=== PATIENT | female | born 1985 | race Caucasian/White ===

== ENCOUNTER 2019-02-21 07:16 | Inpatient (IN) | payer OTHER ==
[~2019-02-21] VITALS: Ht 152.4 cm; Wt 77.2 kg
[~2019-02-21 07:16] MED LIST: FERR325T16 PO; IBUP-1223 PO; OXYC-302 PO; SENN-52 PO
[2019-02-21] MEDS ORDERED: PREN1TAB10 PO (07:29)
[2019-02-21] MEDS ORDERED: LACTATED RINGERS 1,000 ML IVBOLUS ONE (07:30)
[2019-02-21] MEDS ORDERED: METOCLOPRAMIDE 5 MG/ML, 2ML IV ONE (07:30)
[2019-02-21] MEDS ORDERED: SODIUM CITRATE/CITRIC ACID 30 ML UDC PO ONE (07:30)
[2019-02-21] MEDS ORDERED: SODIUM CITRATE/CITRIC ACID 30 ML UDC ONE (07:44)
[2019-02-21] MEDS ORDERED: METOCLOPRAMIDE 5 MG/ML, 2ML ONE (07:44)
[2019-02-21] MEDS ORDERED: OXYTOCIN 30U/ 0.9% NaCL 500ML 500 ML ONE (07:44)
[2019-02-21] MEDS ORDERED: NEWBORN KIT ONE (07:44)
[2019-02-21] MEDS ORDERED: METHYLERGONOVINE 0.2 MG/ML IM ONE (08:00)
[2019-02-21 08:05] VITALS: BP 115/76
[2019-02-21 08:06] LABS: BASOPHILS # (AUTO) 0.02 x10^3/uL (0-0.1); BASOPHILS % (AUTO) 0 % (0-1); EOSINOPHILS # (AUTO) 0.15 x10^3/uL (0-0.4); EOSINOPHILS % (AUTO) 2 % (1-7); LYMPHOCYTES # (AUTO) 1.98 x10^3/uL (1-3.4); LYMPHOCYTES % (AUTO) 22 % (22-44); MD NO; MEAN CORPUSCULAR HEMOGLOBIN 27.8 pg (27.0-34.8); MEAN CORPUSCULAR HGB CONC 31.8 g/dL (32.4-35.8); MEAN CORPUSCULAR VOLUME 87.4 fL (80-100); MEAN PLATELET VOLUME 9.1 fL (7.4-10.4); MONOCYTES % (AUTO) 3 % (2-9); NEUTROPHILS # (AUTO) 6.72 x10^3/uL (1.8-6.8); NEUTROPHILS % (AUTO) 73 % (42-75); PLATELET COUNT 199 x10^3/uL (130-400); RED BLOOD COUNT 4.52 x10^6/uL (3.82-5.3); RED CELL DISTRIBUTION WIDTH 18.4 % (9.6-15.2)
[2019-02-21] MEDS ORDERED: FENTANYL PF 100 MCG/2ML ONE (08:17)
[2019-02-21] MEDS: LACTATED RINGERS 1,000 ML IV SCH ×4 (08:45→18:05)
[2019-02-21] MEDS ORDERED: CEFAZOLIN 1,000 MG ONE (09:13)
[2019-02-21] MEDS ORDERED: OXYTOCIN 10 UNITS/ML, 1ML ONE (09:13)
[2019-02-21] MEDS ORDERED: EPHEDRINE 50 MG/ML, 1ML ONE (09:13)
[2019-02-21] MEDS ORDERED: GLYCOPYRROLATE 0.2MG/1ML, 5ML ONE (09:57)
[2019-02-21] MEDS ORDERED: LACTATED RINGERS 1,000 ML IV SCH (10:05)
[2019-02-21] MEDS ORDERED: ONDANSETRON 2MG/ML, 2ML IV PRN ×2 (10:30)
[2019-02-21] MEDS ORDERED: IBUPROFEN 600 MG TABLET PO PRN (10:30)
[2019-02-21] MEDS ORDERED: OXYcodone 5 MG/5 ML ORAL.SOL UDC PO PRN (10:30)
[2019-02-21] MEDS ORDERED: EPHEDRINE 50 MG/ML, 1ML IVPush PRN (10:30)
[2019-02-21] MEDS ORDERED: MORPHINE SULFATE 4 MG/ML, 1ML IVPush PRN ×2 (10:30)
[2019-02-21] MEDS ORDERED: CARBOPROST TROMETHAMINE 250 MCG/ML, 1ML IM PRN (10:30)
[2019-02-21] MEDS ORDERED: DIPHENHYDRAMINE 50 MG/ML, 1ML IVPush PRN (10:30)
[2019-02-21] MEDS ORDERED: DEXAMETHASONE 4 MG/ML, 1ML IV PRN (10:30)
[2019-02-21] MEDS ORDERED: ACETAMINOPHEN 325 MG TABLET PO PRN ×2 (10:30)
[2019-02-21] MEDS ORDERED: FENTANYL PF 100 MCG/2ML IV PRN (10:30)
[2019-02-21] MEDS ORDERED: PROMETHAZINE 25 MG/ML, 1ML IV PRN (10:30)
[2019-02-21] MEDS ORDERED: MISOPROSTOL 200 MCG TABLET PR PRN (10:30)
[2019-02-21] MEDS ORDERED: MEPERIDINE/PF 50 MG/ML IM PRN (10:30)
[2019-02-21] MEDS ORDERED: METOCLOPRAMIDE 5 MG/ML, 2ML IV PRN (10:30)
[2019-02-21] MEDS ORDERED: METHYLERGONOVINE 0.2 MG/ML IM PRN (10:30)
[2019-02-21] MEDS: OXYTOCIN 30U/ 0.9% NaCL 500ML 500 ML IV SCH ×2 (10:45→20:05)
[2019-02-21] MEDS ORDERED: KETOROLAC 30 MG/1 ML ONE (11:06)
[2019-02-21] MEDS: KETOROLAC 30 MG/1 ML IV SCH ×3 (11:07→22:18)
[2019-02-21 11:45] VITALS: BP 123/82
[2019-02-21] MEDS: OXYcodone/APAP 5/325MG TABLET PO PRN ×3 (15:50→22:24)
[2019-02-21 15:53] VITALS: BP 105/67
[2019-02-21 17:30] LABS: BASOPHILS # (AUTO) 0.04 x10^3/uL (0-0.1); BASOPHILS % (AUTO) 0 % (0-1); EOSINOPHILS # (AUTO) 0.17 x10^3/uL (0-0.4); EOSINOPHILS % (AUTO) 2 % (1-7); LYMPHOCYTES # (AUTO) 1.33 x10^3/uL (1-3.4); LYMPHOCYTES % (AUTO) 12 % (22-44); MD NO; MEAN CORPUSCULAR HEMOGLOBIN 28.5 pg (27.0-34.8); MEAN CORPUSCULAR HGB CONC 32.4 g/dL (32.4-35.8); MEAN CORPUSCULAR VOLUME 87.9 fL (80-100); MEAN PLATELET VOLUME 9.1 fL (7.4-10.4); MONOCYTES # (AUTO) 0.41 x10^3/uL (0.2-0.8); MONOCYTES % (AUTO) 4 % (2-9); NEUTROPHILS # (AUTO) 9.56 x10^3/uL (1.8-6.8); NEUTROPHILS % (AUTO) 83 % (42-75); PLATELET COUNT 178 x10^3/uL (130-400); RED CELL DISTRIBUTION WIDTH 17.7 % (9.6-15.2)
[2019-02-21 20:00] VITALS: BP 91/60
[2019-02-21] MEDS: DOCUSATE 100 MG CAPSULE PO PRN (22:18)
[2019-02-21 23:47] VITALS: BP 91/53
[2019-02-22] MEDS: OXYcodone/APAP 5/325MG TABLET PO PRN ×5 (02:11→22:34)
[2019-02-22 04:15] VITALS: BP 94/62
[2019-02-22] MEDS: KETOROLAC 30 MG/1 ML IV SCH ×4 (04:18→22:31)
[2019-02-22] MEDS: OXYTOCIN 30U/ 0.9% NaCL 500ML 500 ML IV SCH ×2 (06:05→16:05)
[2019-02-22 07:50] VITALS: BP 95/64
[2019-02-22] MEDS: DOCUSATE 100 MG CAPSULE PO PRN ×2 (07:58→22:31)
[2019-02-22] MEDS: PRENATAL VIT/IRON/FA 1 EACH TABLET PO SCH (07:58)
[2019-02-22] MEDS: SIMETHICONE 80 MG CHEW TAB PO PRN ×2 (07:59→18:56)
[2019-02-22 20:20] VITALS: BP 104/71
[2019-02-23] MEDS: OXYTOCIN 30U/ 0.9% NaCL 500ML 500 ML IV SCH (02:05)
[2019-02-23] MEDS: OXYcodone/APAP 5/325MG TABLET PO PRN ×3 (04:30→12:25)
[2019-02-23] MEDS: KETOROLAC 30 MG/1 ML IV SCH (04:30)
[2019-02-23] MEDS: SIMETHICONE 80 MG CHEW TAB PO PRN ×2 (04:30→11:18)
[2019-02-23 07:45] VITALS: BP 108/73
[2019-02-23] MEDS: PRENATAL VIT/IRON/FA 1 EACH TABLET PO SCH (08:11)
[2019-02-23] MEDS: DOCUSATE 100 MG CAPSULE PO PRN (08:11)
[2019-02-23] MEDS ORDERED: IBUP-1222 PO (10:12)
[2019-02-23] MEDS ORDERED: DOCU-131 PO (10:12)
[2019-02-23] MEDS ORDERED: OXYC-302 PO (10:14)
== END 2019-02-23 12:41 | disposition home or self-care (01) | DRG 788 ==
LOC: LDIP 07:16 → 2NW 11:29
PROVIDERS: ADMIT Obstetrics & Gynecology; ATTEND Obstetrics & Gynecology
PROC: 10D00Z1 Extraction of Products of Conception, Low, Open Approach (ICD-10-PCS; principal; 2019-02-21)
DX: O34.211 Maternal care for low transverse scar from previous cesarean delivery (principal); O69.81X0 Labor and delivery complicated by cord around neck, without compression, not applicable or unspecified; O99.824 Streptococcus B carrier state complicating childbirth; Z37.0 Single live birth; Z3A.39 39 weeks gestation of pregnancy; O99.284 Endocrine, nutritional and metabolic diseases complicating childbirth; E28.2 Polycystic ovarian syndrome
CPT/HCPCS: 36415; 85025; 86850; 86900; 87806; G0378; J0690; J1885; J3010; G0475; J2210; J2590; J2765; J7120

== ENCOUNTER 2020-02-29 12:08 | Emergency (ER) | payer OTHER ==
[~2020-02-29] VITALS: Ht 152.4 cm; Wt 66.0 kg
[~2020-02-29 12:08] MED LIST changes: +DOCU-131 PO; +IBUP-1222 PO; +PREN1TAB10 PO
[2020-02-29 12:39] LABS: BASOPHILS % (AUTO) 1 % (0-1); EOSINOPHILS % (AUTO) 0 % (1-7); LYMPHOCYTES % (AUTO) 20 % (22-44); MEAN CORPUSCULAR HEMOGLOBIN 28.1 pg (27.0-34.8); MEAN CORPUSCULAR HGB CONC 33.1 g/dL (32.4-35.8); MEAN PLATELET VOLUME 9.5 fL (7.4-10.4); MONOCYTES % (AUTO) 5 % (2-9); NEUTROPHILS % (AUTO) 75 % (42-75); PLATELET COUNT 188 x10^3/uL (130-400); RED BLOOD COUNT 4.99 x10^6/uL (3.82-5.3); RED CELL DISTRIBUTION WIDTH 13.9 % (9.6-15.2)
[2020-02-29 12:45] LABS: MD NO
[2020-02-29 12:53] LABS: ANION GAP 6 mmol/L (5-15); CALCIUM 8.4 mg/dL (8.5-10.1); CHLORIDE 107 mmol/L (98-107)
[2020-02-29 14:24] VITALS: BP 117/80
--- NOTE | 2020-02-29 14:26 | NUR ---
SAVANAH RN: CALLED [facility], NO NEW C/O
--- NOTE | 2020-02-29 18:11 | NUR ---
TASK RN; Patient/Caregiver given discharge instructions and they have confirmed that they understand the instructions. Patient ambulatory with steady gait.
== END 2020-02-29 18:13 | disposition home or self-care (01) ==
LOC: ED 17:50
DX: U07.1 COVID-19 (principal); J18.9 Pneumonia, unspecified organism; R00.0 Tachycardia, unspecified; R94.31 Abnormal electrocardiogram [ECG] [EKG]; M54.6 Pain in thoracic spine
CPT/HCPCS: 71045; 80048; 85025; 87635; 93005; 99285